=== PATIENT | male | born 1955 | race Caucasian/White ===

== ENCOUNTER 2019-04-28 09:45 | Emergency (ER) | payer OTHER ==
--- NOTE | 2019-04-28 10:24 | RAD REPORT ---
EXAM DESCRIPTION: CT - Ct Stroke Brain Wo Cont - 04/28/2019 10:13 am CLINICAL HISTORY: SEIZURE CVA symptomology, headache COMPARISON: HEAD BRAIN W O CONTRAST dated 03/08/2008 TECHNIQUE: All CT scans are performed using dose optimization technique as appropriate and may inclu de automated exposure control or mA/KV adjustment according to patient size. FINDINGS: No intracranial hemorrhage, hydrocephalus or extra-axial fluid collection.Gliosis is seen in the right frontal lobe with evidence of previous right-sided craniotomy in the region. Mild genera lized brain atrophy is noted with mild periventricular and deep white matter chronic microvascular is chemic changes. The paranasal sinuses and mastoids are clear. IMPRESSION: No acute intracranial abnormality. Postsurgical changes are present right frontal lobe. The findings were discussed with Dr. Carreno On 04/28/2019 at 10:15 a.m. by telephone.
[2019-04-28 10:31] LABS: Absolute Lymphocytes (CBC) 0.8 K/uL (0.7-4.9); Basophils % 0.5 % (0-1.3); Hematocrit 37.3 % (39.6-49.0); Lymphocytes % 13.2 % (15.3-44.8); MPV 7.9 fL (7.6-11.3); RBC Red Blood Cell Count 4.73 M/uL (4.33-5.43)
[2019-04-28 10:46] LABS: Potassium 3.9 mmol/L (3.5-5.1)
--- NOTE | 2019-04-28 10:54 | RAD REPORT ---
EXAM DESCRIPTION: [facility] Single View04/28/2019 10:39 am CLINICAL HISTORY: Seizure COMPARISON: 2017 FINDINGS: The lungs appear clear of acute infiltrate. The heart is borderline enlarged IMPRESSION: No acute abnormalities displayed
[2019-04-28 10:56] LABS: Protime INR 1.04
--- NOTE | 2019-04-28 13:37 | ER ---
Nurse's Notes [facility] Name: Rayshawn Waterman Age: 63 yrs Sex: Male : 1955 Arrival Date: 04/28/2019 Time: 09:46 Bed 8 Private MD: Diagnosis: Epilepsy and recurrent seizures;Stable brain cancer Presentation: 04/28 09:46 Presenting complaint: EMS states: Pt hx of seizures r/t brain tumor, had focal seizure ph this morning lasting approx 15 min, 2 mg Ativan administered by EMS, pt postictal upon arrival w/ trouble communicating, BGL 128, BP 140/90, HR 80, 99% RA. Transition of care: patient was not received from another setting of care. Onset of symptoms was April 28, 2019. Risk Assessment: Do you want to hurt yourself or someone else? Patient reports no desire to harm self or others. Initial Sepsis Screen: Does the patient meet any 2 criteria? No. Patient's initial sepsis screen is negative. Does the patient have a suspected source of infection? No. Patient's initial sepsis screen is negative. Care prior to arrival: Medication(s) given: Ativan 2 mg IVP IV initiated. 22 GA, in the left antecubital area, Glucose check: 128. 09:46 Method Of Arrival: EMS: [facility] ph 09:46 Acuity: RONNA 3 ph Triage Assessment: 10:05 General: Appears in no apparent distress. Behavior is cooperative, drowsy, quiet. Pain: ph Denies pain. Neuro: Level of Consciousness is awake, obeys commands, lethargic, post ictal, Oriented to person, place, situation, Seizure activity reported prior to arrival. Type of seizure: focal seizure. Seizure lasted approximately 20 minutes. Patient is post-ictal at this time. Cardiovascular: Capillary refill < 3 seconds in bilateral fingers Patient's skin is warm and dry. Respiratory: Airway is patent Respiratory effort is even, unlabored. Derm: Skin is intact, Skin is pink, warm \T\ dry. Historical: - Allergies: 09:51 No Known Allergies; ph - Home Meds: 10:06 fluconazole 200 mg Oral tab 1 tab for 9 days, starting 04/27 [Active]; lacosamide oral ph 100 mg twice a day oral [Active]; metformin 500 mg Oral Tb24 2 tabs 2 times per day [Active]; polyethylene glycol 3350 17 gram oral pwpk 1 packet once daily [Active]; glipizide 5 mg Oral tab 1 1 -2 tabs twice daily [Active]; Victoza 2-Charli 0.6 mg/0.1 mL (18 mg/3 mL) subcutaneous pnij 0.3 mL once daily [Active]; amlodipine 10 mg tab 1 tab once daily [Active]; atorvastatin 20 mg Oral tab once daily [Active]; hydralazine 100 mg oral tab 1 tab 2 times per day [Active]; losartan 100 mg oral tab 1 tab once daily [Active]; metoprolol succinate 100 mg oral Tb24 1 tab twice a day [Active]; omeprazole 40 mg Oral cpDR 1 cap 2 times per day [Active]; tamsulosin 0.4 mg Oral cp24 1 cap once daily [Active]; - PMHx: 09:51 Anemia; brain cancer; cancer kidney; Diabetes - NIDDM; Hyperlipidemia; Hypertension; ph Seizures; - PSHx: 09:51 brain surgery; Hernia repair; ph - Immunization history:: Adult Immunizations unknown. - Social history:: Smoking status: Patient/guardian denies using tobacco. - Ebola Screening: : No symptoms or risks identified at this time. Screenin:51 Abuse screen: Denies threats or abuse. Denies injuries from another. Nutritional ph screening: No deficits noted. Tuberculosis screening: No symptoms or risk factors identified. Fall Risk No fall in past 12 months (0 pts). Secondary diagnosis (15 points) seizures, IV access (20 points). Ambulatory Aid- None/Bed Rest/Nurse Assist (0 pts). Gait- Normal/Bed Rest/Wheelchair (0 pts) Mental Status- Overestimates/Forgets Limitations (15 pts.). Total Dickerson Fall Scale indicates High Risk Score (45 or more points). Fall prevention measures have been instituted. Side Rails Up X 2 Placed Close to Nursing Station Frequent Obs/Assessments Occuring Family Present and informed to notify staff if the need to leave the bedside As available patient and family educated on Fall Prevention Program and Strategies. 10:30 Patient has been NPO before screening. The patient is alert, able to follow commands. ph The patient does not exhibit slurred or garbled speech The patient is not exhibiting difficulty speaking. The patient does not exhibit difficulty understanding words. The patient is able to swallow own secretions with no drooling or need for suction. Patient tolerated one teaspoon of water. No drooling, immediate coughing, gurgling, or clearing of the throat was noted. The patient tolerated 90mL of water. No drooling, immediate coughing, gurgling, or clearing of the throat was noted. The patient passed the bedside swallow screening. Oral medications may be given as ordered. Contact Physician for further diet orders. Assessment: 10:10 Reassessment: Pt taken to CT via stretcher. ph 10:55 Reassessment: Patient appears in no apparent distress at this time. Patient and/or ph family updated on plan of care and expected duration. Pain level reassessed. Pt resting comfortably w/ eyes closed, respirations even and unlabored, awaiting CT and lab results, VSS, family at bedside. 11:56 Reassessment: Patient appears in no apparent distress at this time. Patient and/or ph family updated on plan of care and expected duration. Pain level reassessed. Patient is alert, oriented x 3, equal unlabored respirations, skin warm/dry/pink. Pt resting comfortably, family at bedside, VSS. 13:10 Reassessment: Patient appears in no apparent distress at this time. Patient and/or ph family updated on plan of care and expected duration. Pain level reassessed. Patient is alert, oriented x 3, equal unlabored respirations, skin warm/dry/pink. Verbal order to ambulate pt, pt walked to restroom and back w/ no difficulty noted, denies weakness or dizziness, ERP notified. 13:47 Reassessment: Patient appears in no apparent distress at this time. Patient and/or ph family updated on plan of care and expected duration. Pain level reassessed. Patient is alert, oriented x 3, equal unlabored respirations, skin warm/dry/pink. D/C pending Vimpat infusion, order faxed to pharmacy. 14:48 Reassessment: Patient appears in no apparent distress at this time. Patient and/or ph family updated on plan of care and expected duration. Pain level reassessed. Patient is alert, oriented x 3, equal unlabored respirations, skin warm/dry/pink. IV medication complete, pt d/c home w/ . Vital Signs: 09:49 BP 141 / 83; Resp 18; Temp 97.9; Pulse Ox 99% on R/A; Weight 127.01 kg; Height 6 ft. 1 ph in. (185.42 cm); Pain 0/10; 09:56 Pulse 73; ph 10:55 BP 135 / 85; Pulse 66; Resp 18; Pulse Ox 98% on R/A; ph 11:57 BP 149 / 85; Pulse 66; Resp 16; Pulse Ox 98% on R/A; ph 13:16 BP 147 / 82; Pulse 67; Resp 18; Pulse Ox 98% on R/A; ph 14:49 BP 139 / 78; Pulse 64; Resp 18; Temp 97.9; Pulse Ox 99% on R/A; ph 09:49 Body Mass Index 36.94 (127.01 kg, 185.42 cm) ph Kelly Coma Score: 10:05 Eye Response: spontaneous(4). Verbal Response: oriented(5). Motor Response: obeys ph commands(6). Total: 15. ED Course: 09:46 Patient arrived in ED. ph 09:47 Andrey Carreno MD is Attending Physician. kdr 09:49 Triage completed. ph 09:51 Arm band placed on Patient placed in an exam room, in the treatment room, on pulse ph oximetry. 10:08 Lois Andrade, RN is Primary Nurse. ph 10:13 CT Stroke Brain w/o Contrast In Process Unspecified. EDMS 10:20 Placed in gown. Bed in low position. Call light in reach. Side rails up X2. Seizure ph precautions initiated. surveillance monitor on. Pulse ox on. NIBP on. Door closed. Noise minimized. Warm blanket given. 10:20 Maintain EMS IV. Dressing intact. Good blood return noted. Site clean \T\ dry. Gauge \T\ ph site: 22 LAC. 10:29 Stroke CXR 1 View In Process Unspecified. EDMS 11:12 EKG done, by surface mount technology operator. reviewed by Andrey Carreno MD. tc 14:49 No provider procedures requiring assistance completed. IV discontinued, intact, ph bleeding controlled, No redness/swelling at site. Pressure dressing applied. Administered Medications: 14:11 Drug: Vimpat 200 mg Route: IV; Rate: calculated rate; Site: left antecubital; ph 14:49 Follow up: Response: No adverse reaction; IV Status: Completed infusion; IV Intake: ph 100ml Intake: 14:49 IV: 100ml; Total: 100ml. ph Outcome: 13:36 Discharge ordered by . kdr 14:50 Discharged to home ambulatory, with significant other. ph 14:50 Condition: improved 14:50 Discharge instructions given to patient, significant other, Instructed on discharge instructions, follow up and referral plans. Demonstrated understanding of instructions, follow-up care. 14:50 Patient left the ED. ph Signatures: Dispatcher [employer] EDMS Andrey Carreno MD MD kdr Lala Gunn, advanced clinical specialist EKG [facility] Lois Andrade RN RN ph Corrections: (The following items were deleted from the chart) 09:57 09:49 BP 141 / 83; Resp 18bpm; Pulse Ox 99% RA; Temp 97.9F; 127.01 kg; Height 6 ft. 1 ph in.; BMI: 36.9; Pain 0/10; ph
--- NOTE | 2019-04-28 13:37 | EDPHYS ---
Physician Documentation [facility] Name: Rayshawn Waterman Age: 63 yrs Sex: Male : 1955 Arrival Date: 04/28/2019 Time: 09:46 Bed 8 Private MD: ED Physician Andrey Carreno HPI: 04/28 10:06 This 63 yrs old Male presents to ER via EMS with complaints of Seizure. kdr 10:06 The patient presents after having a single isolated seizure, that lasted 15 minute(s). kdr Character of seizure(s): Loss of consciousness: the patient experienced loss of consciousness, prolonged, Motor activity: generalized, shaking all over, The patient had twitching to the left face and was unresponsive until about he arrived in the ED.. Seizure onset: just prior to arrival, this morning. Context: the seizure(s) was witnessed, by family, , occurred at home, occurred while the patient was at rest. Seizure Hx: The patient was d/c from [facility] yesterday after an apparent seizure on 04/22/2019. Per the , they had speculated that he had a UTI which somehow resulted in the seizure since CT/MRI were negative and an EEG revealed "pre-seizure" activity. Associated injury: The patient did not suffer any apparent associated injury. The patient has not experienced similar symptoms in the past. Historical: - Allergies: 09:51 No Known Allergies; ph - Home Meds: 10:06 fluconazole 200 mg Oral tab 1 tab for 9 days, starting 04/27 [Active]; lacosamide oral ph 100 mg twice a day oral [Active]; metformin 500 mg Oral Tb24 2 tabs 2 times per day [Active]; polyethylene glycol 3350 17 gram oral pwpk 1 packet once daily [Active]; glipizide 5 mg Oral tab 1 1 -2 tabs twice daily [Active]; Victoza 2-Charli 0.6 mg/0.1 mL (18 mg/3 mL) subcutaneous pnij 0.3 mL once daily [Active]; amlodipine 10 mg tab 1 tab once daily [Active]; atorvastatin 20 mg Oral tab once daily [Active]; hydralazine 100 mg oral tab 1 tab 2 times per day [Active]; losartan 100 mg oral tab 1 tab once daily [Active]; metoprolol succinate 100 mg oral Tb24 1 tab twice a day [Active]; omeprazole 40 mg Oral cpDR 1 cap 2 times per day [Active]; tamsulosin 0.4 mg Oral cp24 1 cap once daily [Active]; - PMHx: 09:51 Anemia; brain cancer; cancer kidney; Diabetes - NIDDM; Hyperlipidemia; Hypertension; ph Seizures; - PSHx: 09:51 brain surgery; Hernia repair; ph - Immunization history:: Adult Immunizations unknown. - Social history:: Smoking status: Patient/guardian denies using tobacco. - Ebola Screening: : No symptoms or risks identified at this time. ROS: 10:06 Constitutional: Negative for fever, chills, and weight loss - per family/ Eyes: kdr Negative for injury, pain, redness, and discharge, Neck: Negative for injury, pain, and swelling, Cardiovascular: Negative for chest pain, palpitations, and edema, Respiratory: Negative for shortness of breath, cough, wheezing, and pleuritic chest pain, Abdomen/GI: Negative for abdominal pain, nausea, vomiting, diarrhea, and constipation, Back: Negative for injury and pain, : Negative for injury, bleeding, discharge, and swelling, MS/Extremity: Negative for injury and deformity, Skin: Negative for injury, rash, and discoloration, Psych: Negative for depression, anxiety, suicide ideation, homicidal ideation, and hallucinations, Allergy/Immunology: Negative for hives, rash, and allergies, Endocrine: Negative for neck swelling, polydipsia, polyuria, polyphagia, and marked weight changes, Hematologic/Lymphatic: Negative for swollen nodes, abnormal bleeding, and unusual bruising. 10:06 Neuro: Positive for altered mental status, loss of consciousness, seizure activity, speech changes, Negative for visual changes. Exam: 10:06 Constitutional: This is a well developed, well nourished patient who is awake, alert, kdr and in no acute distress. Head/Face: Normocephalic, atraumatic. Eyes: Pupils equal round and reactive to light, extra-ocular motions intact. Lids and lashes normal. Conjunctiva and sclera are non-icteric and not injected. Cornea within normal limits. Periorbital areas with no swelling, redness, or edema. Neck: Trachea midline, no thyromegaly or masses palpated, and no cervical lymphadenopathy. Supple, full range of motion without nuchal rigidity, or vertebral point tenderness. No Meningismus. Chest/axilla: Normal chest wall appearance and motion. Nontender with no deformity. No lesions are appreciated. Cardiovascular: Regular rate and rhythm with a normal S1 and S2. No gallops, murmurs, or rubs. Normal PMI, no JVD. No pulse deficits. Respiratory: Lungs have equal breath sounds bilaterally, clear to auscultation and percussion. No rales, rhonchi or wheezes noted. No increased work of breathing, no retractions or nasal flaring. Abdomen/GI: Soft, non-tender, with normal bowel sounds. No distension or tympany. No guarding or rebound. No evidence of tenderness throughout. Skin: Warm, dry with normal turgor. Normal color with no rashes, no lesions, and no evidence of cellulitis. 10:06 Neuro: Orientation: unable to test, Mentation: slow to respond, Memory: unable to test, Cranial nerves: no acute changes, Motor: Moves the right side better than the left side - prior stroke residual. Vital Signs: 09:49 BP 141 / 83; Resp 18; Temp 97.9; Pulse Ox 99% on R/A; Weight 127.01 kg; Height 6 ft. 1 ph in. (185.42 cm); Pain 0/10; 09:56 Pulse 73; ph 10:55 BP 135 / 85; Pulse 66; Resp 18; Pulse Ox 98% on R/A; ph 11:57 BP 149 / 85; Pulse 66; Resp 16; Pulse Ox 98% on R/A; ph 13:16 BP 147 / 82; Pulse 67; Resp 18; Pulse Ox 98% on R/A; ph 14:49 BP 139 / 78; Pulse 64; Resp 18; Temp 97.9; Pulse Ox 99% on R/A; ph 09:49 Body Mass Index 36.94 (127.01 kg, 185.42 cm) ph Kelly Coma Score: 10:05 Eye Response: spontaneous(4). Verbal Response: oriented(5). Motor Response: obeys ph commands(6). Total: 15. MDM: 10:06 Data reviewed: vital signs, nurses notes, lab test result(s), radiologic studies. kdr Counseling: I had a detailed discussion with the patient and/or guardian regarding: the historical points, exam findings, and any diagnostic results supporting the discharge/admit diagnosis, lab results, radiology results. 13:33 ED course: D/w Ness at Dr. Percy Darby's office - Load Vinplat 200 mg IV now then kdr increase dose to 200 mg PO BID. Follow-up next Friday. 13:36 Patient medically screened. kdr 04/28 10:03 Order name: Basic Metabolic Panel; Complete Time: 12:34 kdr 04/28 10:03 Order name: CBC with Diff; Complete Time: 10:37 kdr 04/28 10:03 Order name: Protime (+inr); Complete Time: 12:34 kdr 04/28 10:03 Order name: Ptt, Activated; Complete Time: 12:34 kdr 04/28 10:03 Order name: CT Stroke Brain w/o Contrast; Complete Time: 10:37 kdr 04/28 10:03 Order name: Stroke CXR 1 View; Complete Time: 12:34 kdr 04/28 10:03 Order name: EKG; Complete Time: 10:04 kdr 04/28 10:03 Order name: Accucheck; Complete Time: 10: kdr 04/28 10:03 Order name: Cardiac monitoring; Complete Time: 10: kdr 04/28 10:03 Order name: EKG - Nurse/Tech; Complete Time: 10:52 kdr 04/28 10:03 Order name: IV Saline Lock; Complete Time: 10: kdr 04/28 10:03 Order name: Labs collected and sent; Complete Time: 10: kdr 04/28 10:03 Order name: NPO; Complete Time: 10: kdr 04/28 10:03 Order name: O2 Per Protocol; Complete Time: 10: kdr 04/28 10:03 Order name: O2 Sat Monitoring; Complete Time: 10: kdr 04/28 10:03 Order name: Stroke Swallow Screen; Complete Time: 14:14 kdr Administered Medications: 14:11 Drug: Vimpat 200 mg Route: IV; Rate: calculated rate; Site: left antecubital; ph 14:49 Follow up: Response: No adverse reaction; IV Status: Completed infusion; IV Intake: ph 100ml Disposition: 04/28/19 13:36 Discharged to Home. Impression: Epilepsy and recurrent seizures, Stable brain cancer. - Condition is Stable. - Discharge Instructions: Seizure, Adult, [id number]. - Medication Reconciliation Form, Thank You Letter form. - Follow up: Private Physician; When: 48 Hours; Reason: If symptoms return, Further diagnostic work-up, Recheck today's complaints, Continuance of care, Re-evaluation by your physician. - Problem is an acute exacerbation. - Symptoms are resolved. - Notes: Increase your Vimpat to 200 mg, once in the morning and once at night Signatures: Dispatcher [employer] EDAR Andrey Carreno MD MD kdr Lois Andrade RN RN ph Corrections: (The following items were deleted from the chart) 14:50 13:36 04/28/2019 13:36 Discharged to Home. Impression: Epilepsy and recurrent seizures; ph Stable brain cancer. Condition is Stable. Forms are Medication Reconciliation Form, Thank You Letter, Antibiotic Education, Prescription Opioid Use. Follow up: Private Physician; When: 48 Hours; Reason: If symptoms return, Further diagnostic work-up, Recheck today's complaints, Continuance of care, Re-evaluation by your physician. Problem is an acute exacerbation. Symptoms are resolved. kdr
[2019-04-28] MEDS ORDERED: NA CHLORIDE 0.9% IV ONE (14:00)
[2019-04-28] MEDS ORDERED: LACOSAMIDE IV ONE (14:00)
--- NOTE | 2019-04-28 14:39 | EKG ---
Test Date: 2019-04-28 Test Time: 10:48:00 Airplane Captain: TAMAR MEASUREMENT RESULTS: Intervals: Rate: 69 IN: 154 QRSD: 96 QT: 416 QTc: 445 Corinne: P: 20 IN: 154 QRS: -27 T: -4 INTERPRETIVE STATEMENTS: Normal sinus rhythm Normal ECG Compared to ECG 10/20/2015 08:37:31 Left ventricular hypertrophy no longer present Electronically Signed On 04-28-19 14:38:21 CHEMIST by Zohaib Leavitt
[2019-04-28 14:54] VITALS: TEMP 97.9
[2019-04-28 15:00] VITALS: BP 139/78; O2SAT 99
== END 2019-04-28 14:50 | disposition home or self-care (01) ==
LOC: ER 09:45
DX: G40.802 Other epilepsy, not intractable, without status epilepticus (principal); I10 Essential (primary) hypertension; E11.9 Type 2 diabetes mellitus without complications; Z85.841 Personal history of malignant neoplasm of brain; Z85.528 Personal history of other malignant neoplasm of kidney
CPT/HCPCS: 96365; 93005; 85025; 80048; 36415; 85610; 85730; 70450; 71045; 99284; C9254